=== PATIENT | male | born 1970 | race Caucasian/White ===

== ENCOUNTER 2025-03-12 18:20 | Emergency (ER) | payer OTHER ==
[~2025-03-12] VITALS: Ht 175.3 cm; Wt 70.8 kg
[2025-03-12 18:55] LABS: BASOPHILS ABSOLUTE AUTO 0.04 K/mm3 (0.00-0.23); BASOPHILS PERCENT AUTO 1 % (0-2); EOSINOPHILS ABSOLUTE AUTO 0.08 K/mm3 (0.00-0.68); EOSINOPHILS PERCENT AUTO 2 % (0-6); Hematocrit 30.2 % (37.0-53.0); Hemoglobin 10.5 g/dL (13.5-17.5); IMMATURE GRAN ABSOLUTE AUTO 0.02 K/mm3 (0.00-0.10); IMMATURE GRAN PERCENT AUTO 1 % (0-1); LYMPHOCYTES PERCENT AUTO 24 % (21-46); MONOCYTES ABSOLUTE AUTO 0.55 K/mm3 (0.16-1.47); MONOCYTES PERCENT AUTO 17 % (4-13); Mean Corpuscular HGB Conc 34.8 g/dL (31.5-36.5); Mean Corpuscular Volume 109 fL (80-100); Mean Platelet Volume 11.2 fL (9.1-12.4); NEUTROPHILS ABSOLUTE AUTO 1.83 K/mm3 (1.96-9.15); NEUTROPHILS PERCENT AUTO 55 % (41-73); Platelet Count 51 K/mm3 (150-400); RDW Coefficient Variation 18.6 % (11.7-14.2); RDW Standard Deviation 73.6 fL (35.1-46.3); Red Blood Cell Count 2.76 M/mm3 (4.30-5.90); White Blood Cell Count 3.32 K/mm3 (4.00-11.30)
[2025-03-12 19:16] LABS: Albumin, Blood 2.8 g/dL (3.4-5.0); Bilirubin, Total 1.5 mg/dL (0.1-1.0); Bun/Creatinine Ratio 11.8 (12.0-20.0); Calcium, Blood 8.5 mg/dL (8.5-10.1); Creatinine, Blood 0.51 mg/dL (0.60-1.20); Globulin, Blood 2.9 g/dL (2.2-4.0); Total Protein, Blood 5.7 g/dL (6.4-8.2)
[2025-03-12 20:49] LABS: U Amphetamine Screen Not Detected; U Barbituate Screen Not Detected; U Benzodiazapine Screen Not Detected; U Buprenorphine Screen Not Detected; U Cannabinoids Screen DETECTED; U Cocaine Screen Not Detected; U Methadone Screen Not Detected; U Methamphetamine Screen Not Detected; U Opiates Screen Not Detected; U Oxycodone Screen Not Detected; U Phencyclidine Screen Not Detected
== END 2025-03-12 23:05 | disposition home or self-care (01) ==
LOC: ER 18:20
PROVIDERS: Student in an Organized Health Care Education/Training Program
DX: F10.239 Alcohol dependence with withdrawal, unspecified (principal); R74.01 Elevation of levels of liver transaminase levels; D69.6 Thrombocytopenia, unspecified; F17.200 Nicotine dependence, unspecified, uncomplicated; I10 Essential (primary) hypertension
CPT/HCPCS: 70450; 80053; 80320; 85025; 93005; 93010; 99285-25

== ENCOUNTER 2025-03-15 01:39 | Inpatient (IN) | payer OTHER ==
[~2025-03-15] VITALS: Ht 177.8 cm; Wt 72.4 kg
[2025-03-15] VITALS (28 sets, daily range): BP systolic 115–179; BP diastolic 66–162
[2025-03-15] MEDS ORDERED: LORazepam 2 MG/ML 1ML Injection IM ONE (03:50)
[2025-03-15] MEDS ORDERED: Lactated Ringer's 1,000 ML IV ONE (04:40)
[2025-03-15] MEDS ORDERED: PHENobarbitaL sodium 130 MG/ML VIAL IV ONE (04:45)
[2025-03-15 05:01] LABS: BASOPHILS ABSOLUTE AUTO 0.04 K/mm3 (0.00-0.23); BASOPHILS PERCENT AUTO 1 % (0-2); EOSINOPHILS ABSOLUTE AUTO 0.15 K/mm3 (0.00-0.68); EOSINOPHILS PERCENT AUTO 4 % (0-6); Hematocrit 28.4 % (37.0-53.0); Hemoglobin 9.9 g/dL (13.5-17.5); IMMATURE GRAN ABSOLUTE AUTO 0.01 K/mm3 (0.00-0.10); IMMATURE GRAN PERCENT AUTO 0 % (0-1); LYMPHOCYTES ABSOLUTE AUTO 0.61 K/mm3 (0.84-5.20); LYMPHOCYTES PERCENT AUTO 17 % (21-46); MONOCYTES ABSOLUTE AUTO 0.47 K/mm3 (0.16-1.47); MONOCYTES PERCENT AUTO 13 % (4-13); Mean Corpuscular HGB 38.2 pg (26.0-34.0); Mean Corpuscular HGB Conc 34.9 g/dL (31.5-36.5); Mean Corpuscular Volume 110 fL (80-100); Mean Platelet Volume 11.1 fL (9.1-12.4); NEUTROPHILS ABSOLUTE AUTO 2.41 K/mm3 (1.96-9.15); NEUTROPHILS PERCENT AUTO 65 % (41-73); Platelet Count 54 K/mm3 (150-400); RDW Coefficient Variation 18.1 % (11.7-14.2); RDW Standard Deviation 72.4 fL (35.1-46.3); Red Blood Cell Count 2.59 M/mm3 (4.30-5.90); White Blood Cell Count 3.69 K/mm3 (4.00-11.30)
[2025-03-15 05:25] LABS: Magnesium, Blood 1.3 mg/dL (1.6-2.4)
[2025-03-15 05:26] LABS: Alanine Aminotransfer (ALT/SGP 40 U/L (12-78); Albumin, Blood 2.8 g/dL (3.4-5.0); Albumin/Globulin Ratio 0.9 (0.8-1.8); Alk Phos 125 U/L (50-136); Anion Gap 10 mmol/L (3-11); Aspartate Aminotrans (AST/SGOT 92 U/L (12-37); Bilirubin, Total 1.8 mg/dL (0.1-1.0); Blood Urea Nitrogen 6 mg/dL (8-24); Bun/Creatinine Ratio 11.7 (12.0-20.0); CO2, Blood 24 mmol/L (21-32); Calcium, Blood 8.8 mg/dL (8.5-10.1); Chloride, Blood 105 mmol/L (98-108); Creatinine, Blood 0.51 mg/dL (0.60-1.20); Ethanol (Alcohol), Blood, Med <3 mg/dL; Globulin, Blood 3.1 g/dL (2.2-4.0); Glomerular Filtration Rate 119 (60-); Glucose, Blood 104 mg/dL (70-99); Phosphorus, Blood 3.7 mg/dL (2.5-4.9); Potassium, Blood 3.7 mmol/L (3.5-5.5); Sodium, Blood 135 mmol/L (136-145); Total Protein, Blood 5.9 g/dL (6.4-8.2)
[2025-03-15] MEDS ORDERED: LORazepam 2 MG/ML 1ML Injection IV ONE (05:40)
[2025-03-15] MEDS ORDERED: PHENobarbital Sodium 65MG / ML 1ML Vial IV ONE (06:30)
[2025-03-15] MEDS ORDERED: LORazepam 2 MG/ML 1ML Injection IV PRN ×2 (07:55)
[2025-03-15] MEDS ORDERED: Ondansetron HCl 2 MG / ML 2ML Vial IV PRN (07:55)
[2025-03-15] MEDS ORDERED: NS 1,000 ML IV SCH (08:00)
[2025-03-15] MEDS ORDERED: dexmedeTOMIDine 100 ML IV SCH (08:05)
[2025-03-15] MEDS ORDERED: Magnesium Sulf 2 GM/Water 50ML 50 ML IV ONE (08:15)
[2025-03-15] MEDS ORDERED: Thiamine HCl 100 MG in NS 50 ML IV SCH (09:00)
[2025-03-15] MEDS ORDERED: Enoxaparin 40 MG/0.4 ML SYR SC SCH (09:00)
--- NOTE | 2025-03-15 09:35 | NUR ---
ARRIVAL TO UNIT THIS PT ARRIVED TO ICU AT APPROXIMATELY 0920 WITH THIS NURSE ASSUMING CARE AT THE SAME TIME. PT UNABLE TO ANSWER ANY QUESTIONS WHILE BEING TENSE AND DEFENSIVE WITH PHYSICAL MOVEMENTS. PT SPEECH IS MUMBLED AND HARD TO UNDERSTAND. WILL CONTINUE WITH THE PLAN OF CARE.
--- NOTE | 2025-03-15 17:37 | NUR ---
SHIFT SUMMARY PT REMAINS CONFUSED WITH CIWA'S 20-22, TREATED WITH MEDS ON EMAR. PT ABLE TO TELL YEAR AND LOCATION BUT NOT ANYTHING ELSE. PT PARTNER REAL WOODRAD "YRN" HAS BEEN CALLING AND HAS BEEN UPDATING THE REST OF THE FAMILY, HER NUMBER: [phone]. PRECEDEX WAS TURNED OFF D/T BRADYCARDIA. WILL CONTINUE WITH THE PLAN OF CARE.
--- NOTE | 2025-03-15 18:09 | NUR ---
SHIFT SUMMARY PT RECEIVING 3% SALINE GTT PER ORDER. MD BARRY ORDERED TO DC GTT WHEN SODIUM REACHES A LAB VALUE OF 124. PT COMPLETELY ALERT AND ORIENTED. NO NEW ACUTE EVENTS THROUGHOUT THE SHIFT. WILL CONTINUE WITH THE PLAN OF CARE.
[2025-03-16] VITALS (27 sets, daily range): BP systolic 108–151; BP diastolic 62–97
[2025-03-16 03:46] LABS: Hematocrit 28.7 % (37.0-53.0); Hemoglobin 9.6 g/dL (13.5-17.5); Mean Corpuscular HGB 38.1 pg (26.0-34.0); Mean Corpuscular HGB Conc 33.4 g/dL (31.5-36.5); Mean Corpuscular Volume 114 fL (80-100); Mean Platelet Volume 10.8 fL (9.1-12.4); Platelet Count 54 K/mm3 (150-400); RDW Coefficient Variation 17.8 % (11.7-14.2); RDW Standard Deviation 75.7 fL (35.1-46.3); Red Blood Cell Count 2.52 M/mm3 (4.30-5.90); White Blood Cell Count 4.97 K/mm3 (4.00-11.30)
[2025-03-16 03:58] LABS: International Normalized Ratio 1.31; Prothrombin Time Results 13.7 Sec (9.7-11.5)
[2025-03-16 04:28] LABS: Ferritin, Serum 287 ng/mL (26-388); Iron Serum 24 ug/dL (65-175); Magnesium, Blood 1.5 mg/dL (1.6-2.4); Percent Saturation 9.9 % (20.0-50.0); Total Iron Binding Capacity 242 ug/dL (250-450)
[2025-03-16 04:29] LABS: Albumin, Blood 2.5 g/dL (3.4-5.0); Anion Gap 10 mmol/L (3-11); Blood Urea Nitrogen 5 mg/dL (8-24); Bun/Creatinine Ratio 9.5 (12.0-20.0); CO2, Blood 24 mmol/L (21-32); Calcium, Blood 7.5 mg/dL (8.5-10.1); Chloride, Blood 106 mmol/L (98-108); Creatinine, Blood 0.53 mg/dL (0.60-1.20); Glomerular Filtration Rate 118 (60-); Glucose, Blood 76 mg/dL (70-99); Phosphorus, Blood 2.5 mg/dL (2.5-4.9); Sodium, Blood 136 mmol/L (136-145)
--- NOTE | 2025-03-16 05:35 | NUR ---
SHIFT SUMMARY PT A/O TO SELF, CONFUSED, HALLUCINATING, MUMBLES TO SELF, AGITATED. PT PLACED IN SWB AND MITTS FOR PULLING AT LINES, CORDS AND ATTEMPTING TO GET OOB. MULTIPLE DOSES OF ATIVAN GIVEN FOR AGITATION AND CIWA SCORES > 19. ON 2L NC WITH SATS > 92%, LS CLEAR AND DIM. ON BED AND BREAKFAST COOK, HR 60-90'S, BP STABLE. DENIES N/V. NO BM THIS SHIFT. PUREWICK AND ATTENDS IN PLACE, GOOD UOP NOTED.
[2025-03-16] MEDS ORDERED: Magnesium Sulf 2 GM/Water 50ML 50 ML IV ONE (08:30)
[2025-03-16] MEDS ORDERED: Thiamine HCl 500 MG in NS 100 ML IV SCH (11:14)
--- NOTE | 2025-03-16 13:51 | NUR ---
CARE ASSUMPTION PT AWAKENS TO VERBAL, ORIENTED TO SELF ONLY. VISUAL HALLUCINATIONS. PULLING AT LINES/CORDS WHEN AWAKE. SP02>90% oN 2L NC. NSR, HR 60'S-70'S. BP STABLE. CIWA 17. BED BATH GIVEN, REPOSITION Q2H. C/D ATTENDS IN PLACE. ABLE TO USE URINAL WHEN PROMPTED, DARK YELLOW URINE. NS INFUSING AT 100 MLS/HR PER EMAR. MAG LOW, SEE RESULTS. MD BURGESS W/ ORDERS FOR 2G MAG REPLACEMENT IVPB, INFUSED PER EMAR. PT'S PARTNER, REAL, CALLED MULTIPLE TIMES THIS MORNING FOR UPDATES. SPOKE WITH RAEL AND UPDATED HER X3. CALL LIGHT IN REACH.
--- NOTE | 2025-03-16 17:57 | NUR ---
SHIFT SUMMARY: A/O x1 TO SELF, POLITE AND COOPERATIVE WITH CARE, VARYING RESPONSE TO BEING REDIRECTABLE, CIWA SCORE DECREASED FROM 19 AT BEGINING OF SHIFT TO 13 AT THE 1600 ASSESSMENT, DECREASE IN AGITATION THROUGHOUT SHIFT AND REDUCED NEED FOR ATIVAN, TACTILE DISTURBANCES, TREMORS, AND CONFUSION PERSIST, REMAINED IN SWB AND MITTS. HR 60'S-70'S, NSR, 20G IV IN LFA WITH NS INFUSING AT 100MLS/HR, RFA IV DC'D DUE TO PT PULLING. SAT >92% ON 2L VIA NC, LUNGS CTA. REMAINS NPO, NO BM, DENIES N/V, ATTENEDS AND TENT IN PLACE, USED URINAL WITH 1 PERSON ASSIST, URINE IS VIVIEN AND APPEARED CONCENTRATED, MILD ODOR, REPOSITIONED Q2 USING PILLOWS TO PT COMFORT, BED BATH GIVEN, CBG Q 6. PT SPOKE TO HIS GF CAT ON THE PHONE AND REPORTS FEELING LESS ANXIOUS AFTER TALKING TO HIS HONEY. PT REMAINS CONFUSED, MUMBLES TO SELF, AND PULLS AT LINES AND CORDS.
[2025-03-17] VITALS (16 sets, daily range): BP systolic 83–151; BP diastolic 62–105
[2025-03-17 05:18] LABS: BASOPHILS ABSOLUTE AUTO 0.05 K/mm3 (0.00-0.23); BASOPHILS PERCENT AUTO 1 % (0-2); EOSINOPHILS ABSOLUTE AUTO 0.14 K/mm3 (0.00-0.68); EOSINOPHILS PERCENT AUTO 3 % (0-6); Hematocrit 30.8 % (37.0-53.0); Hemoglobin 10.4 g/dL (13.5-17.5); IMMATURE GRAN ABSOLUTE AUTO 0.04 K/mm3 (0.00-0.10); IMMATURE GRAN PERCENT AUTO 1 % (0-1); LYMPHOCYTES ABSOLUTE AUTO 0.83 K/mm3 (0.84-5.20); LYMPHOCYTES PERCENT AUTO 15 % (21-46); MONOCYTES ABSOLUTE AUTO 0.58 K/mm3 (0.16-1.47); MONOCYTES PERCENT AUTO 11 % (4-13); Mean Corpuscular HGB 38.4 pg (26.0-34.0); Mean Corpuscular HGB Conc 33.8 g/dL (31.5-36.5); Mean Corpuscular Volume 114 fL (80-100); Mean Platelet Volume 11.5 fL (9.1-12.4); NEUTROPHILS ABSOLUTE AUTO 3.89 K/mm3 (1.96-9.15); NEUTROPHILS PERCENT AUTO 70 % (41-73); Platelet Count 64 K/mm3 (150-400); RDW Standard Deviation 70.5 fL (35.1-46.3); Red Blood Cell Count 2.71 M/mm3 (4.30-5.90); White Blood Cell Count 5.53 K/mm3 (4.00-11.30)
[2025-03-17 05:36] LABS: Albumin, Blood 2.7 g/dL (3.4-5.0); Albumin/Globulin Ratio 0.8 (0.8-1.8); Bilirubin, Total 1.7 mg/dL (0.1-1.0); Bun/Creatinine Ratio 11.6 (12.0-20.0); Calcium, Blood 7.6 mg/dL (8.5-10.1); Creatinine, Blood 0.52 mg/dL (0.60-1.20); Globulin, Blood 3.2 g/dL (2.2-4.0); Magnesium, Blood 1.8 mg/dL (1.6-2.4); Total Protein, Blood 5.9 g/dL (6.4-8.2)
--- NOTE | 2025-03-17 05:46 | NUR ---
SHIFT SUMMARY PT HAD UNEVENTFUL NIGHT. A/OX3, ABLE TO MAKE NEEDS KNOWN, HOLDING CONVERSATION WITH STAFF. CIWAS RANGED FROM 9-12 THIS SHIFT, ATIVAN X2 DOSES GIVEN. PT WAS PLEASANT T/O SHIFT. ON 2L NC, SATS > 96%. NSR ON SUPERVISOR MACHINING, HR 70-80'S, BP STABLE. PUREWICK IN PLACE WITH GOOD UOP NOTED. NO BM THIS SHIFT. SWB AND MITTS IN PLACE FOR GRABBING LINES. NEW IV PLACED TO THE RFA.
--- NOTE | 2025-03-17 07:21 | NUR ---
CARE ASSUMPTION RECEIVED REPORT FROM DIESEL TRUCK TECHNICIAN NURSE, PT APPEARED TO BE RESTING IN BED AND IN NO IMMEDIATE DISTRESS. PT IS HERE FOR ETOH WITHDRAW WITH THE LAST CIWA SCORE BEING 9. PT STILL IN SOFT RESTRAINTS WITH HISTORY OF PULLING AT LINES AND IVS. PT'S MORNING PLT AT 64 WITH LOVENOX SCHEDULED AT 0900 WITH A HOLD AT <50.
[2025-03-17] MEDS ORDERED: ChlordiazePOXIDE 25 MG Cap PO PRN (12:15)
[2025-03-17] MEDS ORDERED: Nystatin 100,000 Unit/ML Susp 5 ML UDC SS SCH (17:00)
--- NOTE | 2025-03-17 18:07 | NUR ---
SHIFT SUMMARY NEURO: AT BEGINNING OF SHIFT PT WAS ALERT AND ORIENTED TO YEAR BUT NOT MONTH, PLACE, AND SELF. PT WOULD TALK WITH EYES CLOSED AND SPEECH WAS SLIGHTLY MUMBLED. THROUGHOUT SHIFT PT BECAME MORE ALERT AND ORIENTED TO CURRENT SITUATION AND WOULD ASK ABOUT LENGTH OF STAY. PT AT TIMES WOULD BECOME RESTLESS AND AGITATED, TAKING OUT PURWICK SEVERAL TIMES, AND TALK ABOUT THINGS UNRELATED TO HOSTPIAL STAY. PT IS COOPERATIVE WITH CARE AND ABLE TO BE REDIRECTED. PT THROUGHTOUT SHIFT HAS BEEN ABLE TO FOLLOW BASIC MOTOR COMMANDS AND MOVE EXTREMITIES DESIRED CARDIOVASCULAR: PT REMAINED ON TELE THROUGHOUT SHIFT IN 70'S-90'S SINUS RHYTHM, PT HAS HAD NO COMPLAINTS OF CHEST PAIN OR PRESSURE, AND WAS REMOVED OFF TELE AT END OF SHIFT. RESPIRATORY: PT HAS BEEN ON ROOM AIR THROUGHOUT SHIFT WITH SATS >93% . PT HAS NOT COMPLAINED OF SHORTNESS OF BREATH AND RESPIRATIONS EVEN AND UNLABORED. LUNG SOUNDS HAVE BEEN CLEAR THROUGHOUT. GI: PT'S BOWEL SOUNDS HAVE BEEN ACTIVE THROUGHOUT SHIFT, BUT NO BOWEL MOVEMENT TODAY. PT TAKEN OFF NPO STATUS, INTRODUCING THIN LIQUIDS TOLERATED, AND TOLERATING IT WELL. PT HAS NOT COMPLAINED OF ABDOMEN TENDERNESS OR PAIN. : PT HAS MALE PURWICK IN PLACE BUT HAS YANKED OFF SEVERAL THROUGHOUT SHIFT. PT OFTEN NEEDS ENCOURAGEMENT TO URINATE. PT EXPRESSED RELIEF AFTER ENCOURAGEMENT TO URINATE, EMPTYING OUT ABOUT 500ML AT THAT TIME. SKIN: PT SKIN HAS BEEN DRY AND COOL THROUGHOUT SHIFT. PT HAS HAS BRUISE ON LEFT ARM FROM INFALTRATED IV THAT WAS REPORTED TO US FROM AUTOMATION APPLICATION ENGINEER. PAIN: PT REPORTED A HEADACHE AT THE BEGINNING OF SHIFT BUT HAS SINCE NOT COMPLAINED OF PAIN. PT HAS MEDICATION PER EMAR FOR PAIN RELIEF NEEDED.
--- NOTE | 2025-03-17 21:55 | NUR ---
ASSUMPTION OF CARE AT 1905 MYSELF AND RN BECKA ASSUMED CARE OF PT.PT HAS BEEN TRYING TO GET OUT OF BED OWN HIS OWN AND IS UNSTEADY ON HIS FEET AND WEAK. PT HAS BEEN USING A FWW TO AMBULATE W/ASSISTANCE. PT HAS EXPERIENCED CONFUSION THIS SHIFT AND IS ALERT TO SELF BUT UNABLE TO TELL US WHERE HE IS AT. AT THE BEGINNIG OF SHIFT PT WAS ABLE TO TELL THE YEAR BUT NOW GUESSED 1994 AND THEN SAID 2024.PT HAS A CIWA SCORE OF 10 OF 2149 PT IS ANXIOUS, EXPERIENCING WITHDRAWLS AND HAS HAND TREMORS. PT IS ACTIVELY TRYING TO LEAVE AMA. MYSELF AND THE RN HELPED THE PT CALL HIS S/O "YRN" W/HOSPITAL PHONE AND HE EXPRESSED WANTING HER TO COME PICK HIM UP. PT'S S/O LIVES IN [place] AND WANTS PT TO STAY AT LEAST UNTIL MORNING. WE EXPLAINED THAT WE CANNOT FORCE THE PT TO STAY HERE AGAINST HIS WILL BUT PT IS ACCEPTING AT THIS TIME TO STAY UNTIL AT LEAST MORNING. PT IS ANSWERING QUESTIONS AND HS BEEN MEDICATED PER EMAR, PUREWICK IN PLACE, PATENT LAC IV IN PLACE AND BED ALARM SET FOR SAFETY W/SEIZURE PADS IN PLACE. PT WILL HAVE A SITTER COMING IN WELL.
[2025-03-17] MEDS ORDERED: Nicotine 21 MG PATCH TOP SCH (22:30)
[2025-03-18 03:09] VITALS: BP 151/85
[2025-03-18 03:47] LABS: Hematocrit 29.6 % (37.0-53.0); Hemoglobin 9.9 g/dL (13.5-17.5); Mean Corpuscular HGB 37.1 pg (26.0-34.0); Mean Corpuscular HGB Conc 33.4 g/dL (31.5-36.5); Mean Corpuscular Volume 111 fL (80-100); Mean Platelet Volume 11.6 fL (9.1-12.4); Platelet Count 69 K/mm3 (150-400); RDW Coefficient Variation 16.4 % (11.7-14.2); RDW Standard Deviation 67.1 fL (35.1-46.3); Red Blood Cell Count 2.67 M/mm3 (4.30-5.90); White Blood Cell Count 4.17 K/mm3 (4.00-11.30)
[2025-03-18 04:16] LABS: Albumin, Blood 2.5 g/dL (3.4-5.0); Anion Gap 9 mmol/L (3-11); Blood Urea Nitrogen 3 mg/dL (8-24); Bun/Creatinine Ratio 5.7 (12.0-20.0); CO2, Blood 23 mmol/L (21-32); Calcium, Blood 7.9 mg/dL (8.5-10.1); Chloride, Blood 107 mmol/L (98-108); Creatinine, Blood 0.53 mg/dL (0.60-1.20); Glomerular Filtration Rate 118 (60-); Glucose, Blood 101 mg/dL (70-99); Magnesium, Blood 1.7 mg/dL (1.6-2.4); Phosphorus, Blood 1.9 mg/dL (2.5-4.9); Potassium, Blood 3.3 mmol/L (3.5-5.5); Sodium, Blood 136 mmol/L (136-145)
[2025-03-18] MEDS ORDERED: Acetaminophen 325 MG TABLET PO PRN (04:20)
[2025-03-18] MEDS ORDERED: Potassium Phosphate Dibasic 20 MM in Dextrose 5% 500 ML IV ONE (05:00)
--- NOTE | 2025-03-18 05:04 | NUR ---
SHIFT SUMM: PT IS A&OX 3-4 WITH SOME CONFUSION AND CIWA OF 7-10 THIS SHIFT. ATIVAN AND LIBRIUM GIVEN BY BECKA MAYA NEEDED (SEE EMAR). PT STILL HAS A 1:1 SITTER TO HELP PREVENT PT FROM GETTING OUT OF BED AND HELP W/REDIRECTION. PT HAS A PATENT IV TO LFA. PT HAS A MALE PURE WICK IN PLACE DRAINING TO GRAVITY. PT HAS BEEN ABLE TO SWALLOW MEDS WWW AND TOLERATE THAT WELL. PT RECIEVED A NICOTINE PATCH TO THE L UPPER BACK OF SHOULDER. PT MAINTAINS SATS ON RA AND IS TOLERATING A CLEAR LIQUID DIET WELL. PT HAS CALL LIGHT IN REACH AND BED ALARM SET FOR SAFETY W/BED LOW AND LOCKED AND SEIZURE PADS IN PLACE. PT STILL PLANS TO LEAVE THIS MORNING WHEN HE HAS A RIDE AVAILABLE TO PICK HIM UP.
[2025-03-18 08:21] VITALS: BP 151/958
--- NOTE | 2025-03-18 08:30 | NUR ---
CARE ASSUMPTION WHEN GETTING REPORT FROM COMPARATIVE SOCIOLOGY PROFESSOR NURSE'S, PT WAS ASLEEP IN BED WITH A SITTER PRESENT IN THE ROOM. THE COMPARATIVE SOCIOLOGY PROFESSOR NURSE REPORTED THAT THE PT WAS EAGER TO LEAVE LAST NIGHT, WITH AN ATTEMPT TO LEAVE AT AROUND 2200. SHORTLY AFTER REPORT PT WAS AMBULATED TO THE RECLINER FOR BREAKFAST WITH THE ASSIST OF TWO STAFF MEMBERS.
[2025-03-18] MEDS ORDERED: Vitamin B Cmplx/Vit C/Folic Ac 1 Tab PO SCH (11:25)
[2025-03-18] MEDS ORDERED: Ferrous Sulfate 325 MG Tab PO SCH (11:25)
[2025-03-18] MEDS ORDERED: Ascorbic Acid 250 MG Chew PO SCH (11:25)
[2025-03-18 15:05] VITALS: BP 150/88
--- NOTE | 2025-03-18 15:15 | NUR ---
PT BELONGINGS LYLE FROM [employer] BROUGHT IN PT'S BELONGINGS INMCLUDING ONE DOLLAR JIMENES, ONE SELCO BANK CARD, BIMART MEMBERSHIP CARD, PT'S CELL PHONE AND MULTPLE MEDICATIONS. PT NOT WANTING JIMENES OR CARDS LOCKED AWAY BY SURGERY SO THIS RN PLACED THEM IN A BAG AND PUT IN REAR POCKET OF HIS PERSONAL PANTYS AND PLACED IN BELONGING BAG ABOVE CLOSET. PT HAS HIS CELL PHONE IN THE CHAIR W HIM. PT'S MEDICATIONS TAKEN TO PHARMACY AND RETURN SLIP PLACVED IN PT'S CHART.
[2025-03-18] MEDS ORDERED: OLANZapine 10 MG Vial IM PRN (17:05)
[2025-03-18 17:24] VITALS: BP 155/84
--- NOTE | 2025-03-18 18:32 | NUR ---
DAY SHIFT SUMMARY PT BEGAN SHIFT AND MOST OF THE DAY W CIWA SCORE 6-11 W MINOR TREMOR AND RESTLESSNESS, HOWEVER THIS AFTERNOON THE PT BECAME VERY AGITATED AFTER WORKING W PT ATTEMPTING TO EXIT HIS BED W/O ASSISTANCE. PER PT THE PT IS A TWO PERSON STAND AND PIVOT DUE TO SIGNIFICANT WEAKNESS AND LACK OR BALANCE. PT MEDICATED PER CIWA BUT BECAME MORE AGITATED. PROVIDER NOTIFIED AND ZYPREXA ORDERED. PT CALMING SLIGHTLY AFTER ZYPREXA ADMINISTRATION. PT'S VSS ALL SHIFT ON RM AIR. PT WAS TO BE MOVED TO MEDICAL FLOOR BUT WAS KEPT IN ICU AFTER HE BECAME MORE AGITATED. WILL REPORT TO ONCOMING RN.
[2025-03-18 20:23] VITALS: BP 151/96
[2025-03-18] MEDS ORDERED: Docusate Sodium 100 MG Cap PO SCH (21:00)
--- NOTE | 2025-03-18 22:15 | NUR ---
PT UPDATE: PT BECAME VERY CONFUSED, NOT RE-DIRECTABLE, ATTEMPTING TO GET OUT OF BED, PULLING ON LINES. PT ADMINISTERED ATIVAN PER EMAR ORDERS, SEE EMAR. SOFT RESTRAINTS INITIATED.
[2025-03-19] VITALS (40 sets, daily range): BP systolic 97–177; BP diastolic 60–110
[2025-03-19] MEDS ORDERED: OLANZapine 10 MG Vial IM PRN (03:50)
--- NOTE | 2025-03-19 03:50 | NUR ---
PT UPDATE: PT CONTINUES TO ATTEMPT TO GET OUT OF BED, PULLING AT LINES, YELLING OUT. PT TALKS TO "YRN" WHO HE BELIEVES IS IN ROOM. CALL MADE TO DR DUBOIS, UPDATED ORDERS OBTAINED FOR ZYPREXA, SEE EMAR.
[2025-03-19 05:26] LABS: BASOPHILS ABSOLUTE AUTO 0.04 K/mm3 (0.00-0.23); BASOPHILS PERCENT AUTO 1 % (0-2); EOSINOPHILS ABSOLUTE AUTO 0.07 K/mm3 (0.00-0.68); EOSINOPHILS PERCENT AUTO 2 % (0-6); Hematocrit 30.9 % (37.0-53.0); Hemoglobin 10.8 g/dL (13.5-17.5); IMMATURE GRAN ABSOLUTE AUTO 0.04 K/mm3 (0.00-0.10); IMMATURE GRAN PERCENT AUTO 1 % (0-1); LYMPHOCYTES ABSOLUTE AUTO 0.52 K/mm3 (0.84-5.20); LYMPHOCYTES PERCENT AUTO 15 % (21-46); MONOCYTES ABSOLUTE AUTO 0.69 K/mm3 (0.16-1.47); MONOCYTES PERCENT AUTO 19 % (4-13); Mean Corpuscular HGB 37.8 pg (26.0-34.0); Mean Corpuscular Volume 108 fL (80-100); NEUTROPHILS ABSOLUTE AUTO 2.19 K/mm3 (1.96-9.15); NEUTROPHILS PERCENT AUTO 62 % (41-73); Platelet Count 76 K/mm3 (150-400); RDW Coefficient Variation 16.2 % (11.7-14.2); RDW Standard Deviation 65.4 fL (35.1-46.3); Red Blood Cell Count 2.86 M/mm3 (4.30-5.90); White Blood Cell Count 3.55 K/mm3 (4.00-11.30)
--- NOTE | 2025-03-19 05:31 | NUR ---
SHIFT SUMMARY: PT IS ALERT AND ORIENTED X3 DURING THE DAY, BUT BECOMES CONFUSED/DISORIENTED DURING EVENING AND NIGHT HOURS. PT WAS DIRECTABLE AND FRIENDLY/COOPERATIVE W/CARE AT START OF SHIFT, T/O REMAINDER OF SHIFT PT BECAME FIDGETY, CONFUSED, NOT DIRECTABLE, OR COOPERATIVE. PT ATTEMPTING TO GET OUT OF BED,DISCONNECTING LINES. PT WAS MEDICATED PER EMAR PRN ORDERS. PT REMAINS SINUS, TACHY. HR IN LOW 100S. SBP 140S-160S. PT LUNGS CLEAR T/O, SATS >95% ON RA. ABD SOFT ON PALPATION, MILDLY DISTENDED. PT TAKING SIPS OF WATER W/ PILLS WHEN COOPERATIVE. MALE PUREWICK CATHETER IN PLACE, DRAINING TO CONT SUCTION. 20G PERIPHERAL IV IN LWRIST.
[2025-03-19 05:45] LABS: Albumin, Blood 2.8 g/dL (3.4-5.0); Albumin/Globulin Ratio 0.8 (0.8-1.8); Bilirubin, Total 1.7 mg/dL (0.1-1.0); Bun/Creatinine Ratio 4.2 (12.0-20.0); Calcium, Blood 8.6 mg/dL (8.5-10.1); Creatinine, Blood 0.48 mg/dL (0.60-1.20); Globulin, Blood 3.7 g/dL (2.2-4.0); Magnesium, Blood 1.6 mg/dL (1.6-2.4); Phosphorus, Blood 1.3 mg/dL (2.5-4.9); Potassium, Blood 3.1 mmol/L (3.5-5.5); Total Protein, Blood 6.5 g/dL (6.4-8.2)
[2025-03-19] MEDS ORDERED: Potassium Phosphate Dibasic 30 MM in Dextrose 5% 500 ML IV ONE (06:45)
--- NOTE | 2025-03-19 10:00 | NUR ---
PATIENT PIV NOT USEABLE. ATTEMPTED TO PLACE PIV AND PT BECAME AGITATED JERKING HIS ARM AFTER NEEDLE INSERTED. INTERVENTIONS USED PRIOR TO ATTEMPT, REORIENTING, SOFT/CALM VOICES, SOFT MUSIC AND RESPOSITIONING. RESTRAINTS IN PLACE FOR PT SAFETY. DROWSY, NOT ORIENTED, UNABLE TO FOLLOW DIRECTIONS, AGITATED. PRN ZYPREXA ADMINISTERED.
[2025-03-19] MEDS ORDERED: Thiamine HCl 100 MG Tab PO ONE (12:05)
--- NOTE | 2025-03-19 15:20 | NUR ---
SHIFT SUMMARY NEURO: PATIENT DROWSY TODAY. ORIENTED X 0. MUMBLED SPEECH. PUPILS PIN POINT. RESPONDS TO VERBAL STIMULI AND SOFT TOUCH. CONFUSED SPEECH IS WORD SALAD AND OCCASIONALLY 1-5 WORD SENTENCES. PT UNABLE TO SWALLOW SAFELY DUE TO SOMNOLENCE. ATTEMPTED BEDSIDE NURSE SWALLOW AND PT COUGHED. WILL WAIT UNTIL MORE AWAKE. CIWAS: <8 TODAY. NO ATIVAN ADMINISTERED ON MY SHIFT. ZYPREXA ADMINISTERED THIS MORNING PT BECAME AGITATED WHEN REMOVING PIV AND ATTEMPTING TO INSERT A NEW ONE. ROM COMPLETED THIS AM BUT PT ATTEMPTED TO SWING HIS ARM TOWARDS ME AN BEGAN BANGING HIS HANDS ON THE BED. CARDIAC: SR, SBP: 90S-120S. HR 70S. PULMONARY: LUNGS CLEAR TO AUSCULTATION GI: ABDOMEN IS SOFT WITH NORMOACTIVE BOWEL TONES : MALE PUREWICK IN PLACE. URINE YELLOW TO LOW SUCTION. SKIN: INTACT WITH SCATTERED BRUISES ON LOWER ABODMEN, BUE (INCLUDING HANDS) AND BLE. CALLED AND SPOKE WITH REAL HIS PARTNER TODAY AND PROVIDED UPDATES. SHE HAD CONCERNS THAT HE IS TOO SEDATED, PROVIDED EDUCATION ON MAR AND CIWA PROTCOL FOR ETOH WITHDRAWL, APPROX 25MIN PHONE CALL. PT SLEPT MOST OF THE DAY. 1:1 SITTER AT BEDSIDE THIS AFTERNOON 1413 AND RESTRAINTS D/C'D.
--- NOTE | 2025-03-19 20:42 | NUR ---
ASSUMED CARE AT 1900 PATIENT IS LETHARGIC AT TIMES, BECAME MORE ALERT AND TALKATIVE, STILL MUMBLES, ORIENTED X SELF AND FOLLOWING DIRECTIONS. STATES IT WAS MARCH 20 AND THAT HE WAS IN HOPE, ABLE TO REDIRECT. SITTER AT BEDSIDE. CIWA 4. SP02 99% ON RA, DENIES SOB. HR SR 80s, BP STABLE. DENIES CP/PRESSURE. MALE PUREWICK IN PLACE TO SUCTION, DRAINING DARK YELLOW URINE. PATIENT ABLE TO REPOSITION SELF. CALL LIGHT IN REACH.
[2025-03-20] VITALS (22 sets, daily range): BP systolic 89–137; BP diastolic 58–120
[2025-03-20 03:39] LABS: BASOPHILS ABSOLUTE AUTO 0.05 K/mm3 (0.00-0.23); BASOPHILS PERCENT AUTO 1 % (0-2); EOSINOPHILS ABSOLUTE AUTO 0.12 K/mm3 (0.00-0.68); EOSINOPHILS PERCENT AUTO 3 % (0-6); Hematocrit 30.7 % (37.0-53.0); Hemoglobin 10.3 g/dL (13.5-17.5); IMMATURE GRAN ABSOLUTE AUTO 0.02 K/mm3 (0.00-0.10); IMMATURE GRAN PERCENT AUTO 1 % (0-1); LYMPHOCYTES ABSOLUTE AUTO 0.83 K/mm3 (0.84-5.20); LYMPHOCYTES PERCENT AUTO 22 % (21-46); MONOCYTES ABSOLUTE AUTO 0.76 K/mm3 (0.16-1.47); MONOCYTES PERCENT AUTO 20 % (4-13); Mean Corpuscular HGB 38.3 pg (26.0-34.0); Mean Corpuscular HGB Conc 33.6 g/dL (31.5-36.5); NEUTROPHILS ABSOLUTE AUTO 2.06 K/mm3 (1.96-9.15); NEUTROPHILS PERCENT AUTO 54 % (41-73); Platelet Count 97 K/mm3 (150-400); RDW Coefficient Variation 19.9 % (11.7-14.2); RDW Standard Deviation 75.8 fL (35.1-46.3); Red Blood Cell Count 2.69 M/mm3 (4.30-5.90); White Blood Cell Count 3.84 K/mm3 (4.00-11.30)
[2025-03-20 03:40] LABS: Mean Corpuscular Volume 114 fL (80-100)
[2025-03-20 04:34] LABS: Magnesium, Blood 1.5 mg/dL (1.6-2.4)
[2025-03-20 04:43] LABS: Albumin, Blood 2.5 g/dL (3.4-5.0); Albumin/Globulin Ratio 0.8 (0.8-1.8); Bilirubin, Total 1.2 mg/dL (0.1-1.0); Bun/Creatinine Ratio 7.7 (12.0-20.0); Calcium, Blood 8.2 mg/dL (8.5-10.1); Creatinine, Blood 0.52 mg/dL (0.60-1.20); Globulin, Blood 3.3 g/dL (2.2-4.0); Phosphorus, Blood 3.3 mg/dL (2.5-4.9); Potassium, Blood 3.2 mmol/L (3.5-5.5); Total Protein, Blood 5.8 g/dL (6.4-8.2)
[2025-03-20] MEDS ORDERED: Magnesium Sulf 2 GM/Water 50ML 50 ML IV ONE (04:50)
[2025-03-20] MEDS ORDERED: Potassium Chloride 40 MEQ in NS 250 ML IV ONE (04:50)
--- NOTE | 2025-03-20 06:09 | NUR ---
SHIFT SUMMARY PATIENT BECAME AGITATED AND CONFUSED AT APPROX 2230, HALLUCINATING AND UNABLE TO REDIRECT, ATTEMPTING TO GET OUT OF BED. MEDICATED PER EMAR. ALEX VEST ON. PATIENT REMAINED ON ROOM AIR THROUGH THE NIGHT, SP02 97%. HR SR-ST 80s-120s. BP STABLE. PUREWICK IN PLACE. SITTER REMAINS AT BEDSIDE.
--- NOTE | 2025-03-20 14:30 | NUR ---
BLADDER SCAN COMPLETED DUE TO ONLY 10ML UOP THIS SHIFT. 406ML IN BLADDER. PT UP TO COMMODE PRIOR WITH NO UOP. PT ABLE TO VOID STANDING AT BEDSIDE WITH URINAL. DIET UPDATED TO SOFT AND BITE SIZED. PT DOES NOT HAVE HIS UPPER DENTURES AND HAD DIFFICULTY EATING PIZZA FOR LUNCH. ENCOURAGING PO FLUID INTAKE AT URINE DARK YELLOW.
--- NOTE | 2025-03-20 17:49 | NUR ---
SHFIT SUMMARY PATIENT ALERT AND ORIENTED X 3-4 AT TIMES, HOWEVER, THIS WAXES AND WANES. OTHER TIMES HE IS DISORIENTED AND CONFUSED. HE DID RECALL STAFFS NAME TODAY. PT SPEECH IS CLEAR BUT HAS OBSERVABLE MUMBLED SPEECH IN WHICH HE VERBALIZES THAT HE IS SEEING ANIMALS THAT ARE NOT THERE. HE ALSO HAS PERIODS WHERE HIS SPEECH PATTERN IS MORE OF A FLIGHT OF IDEAS. HE REMAINS IN A CALM MOOD AND HAS BEEN DIRECTABLE TODAY. HIS LAST CIWA WAS 5. HE HAS NOT RECIEVED ANY PRN MEDICATIONS FOR ETOH WITHDRAWL OR AGITATION TODAY. CADIAC: SR HR 80S SBP 100-120S. LUNGS:CLEAR TO AUSCULATION : DARK YELLOW URINE, ENCOUARGED PO FLUID INTAKE. PUREWICK REMOVED. PT USING COMMODE OR URINAL. GI: SMALL FIRM BM TODAY, STOOL SOFTENER ADMINISTERED TODAY. SKIN: INTACT, ECCYMOSIS TO BUE MOBILITY: PATIENT UP X 3 TO WALK OUTSIDE OF ROOM TODAY. UP TO COMMODE MULTIPLE TIMES. MUSCLE STRENGTH IMPROVING. UPDATES PROVIDED TO PARTNER REAL AND SON KANDICE.
--- NOTE | 2025-03-20 21:28 | NUR ---
ASSUMPTION OF CARE PT LYING IN BED SLEEPING FOLLOWING DOSE OF ZYPREXA GIVEN BEFORE PT RECEIVED AT 1900. REPORT RECEIVED FROM DAY RN. PT LYING IN BED IN NO APPARENT DISTRESS. AFEBRILE. VSS. BREATHING IS WITHOUT EXTTRA EFFORT AND SYMMETRIC EXPANSION. SINUS RHYTHM. STABLE BP. 95% SAT OF RA. PURE WICK OFF FOR NOW. SITTER IN ROOM. WILL REVIEW AND CONTINUE PLAN OF CARE.
--- NOTE | 2025-03-20 23:05 | NUR ---
THIS RN IS CHOOSING TO POSTPONE 2100 MEDS DUE TO PT SEDATION/SLEEPING. WILL ADMINISTER IF/WHEN HE WAKES UP. CONTINUES TO SLEEP SOUNDLY WITH STABLE SINUS RHYTHM IN THE 70'S AND RR OF 16/MIN; BREATHING UNLABORED. SITTER IS STILL IN ROOM.
[2025-03-21] VITALS (8 sets, daily range): BP systolic 120–141; BP diastolic 78–85
[2025-03-21] MEDS ORDERED: Nicotine Polacrilex 2 MG Gum PO PRN (01:55)
[2025-03-21 04:25] LABS: Hematocrit 30.6 % (37.0-53.0); Hemoglobin 10.4 g/dL (13.5-17.5); Mean Corpuscular HGB 37.3 pg (26.0-34.0); Mean Corpuscular Volume 110 fL (80-100); Mean Platelet Volume 12.1 fL (9.1-12.4); Platelet Count 70 K/mm3 (150-400); RDW Coefficient Variation 16.4 % (11.7-14.2); RDW Standard Deviation 67.4 fL (35.1-46.3); Red Blood Cell Count 2.79 M/mm3 (4.30-5.90)
[2025-03-21 04:52] LABS: Albumin, Blood 2.5 g/dL (3.4-5.0); Anion Gap 10 mmol/L (3-11); Blood Urea Nitrogen 7 mg/dL (8-24); Bun/Creatinine Ratio 13.8 (12.0-20.0); CO2, Blood 22 mmol/L (21-32); Calcium, Blood 8.4 mg/dL (8.5-10.1); Chloride, Blood 109 mmol/L (98-108); Creatinine, Blood 0.51 mg/dL (0.60-1.20); Glomerular Filtration Rate 119 (60-); Glucose, Blood 99 mg/dL (70-99); Magnesium, Blood 1.8 mg/dL (1.6-2.4); Phosphorus, Blood 3.3 mg/dL (2.5-4.9); Potassium, Blood 3.8 mmol/L (3.5-5.5); Sodium, Blood 137 mmol/L (136-145)
--- NOTE | 2025-03-21 05:06 | NUR ---
SHIFT SUMMARY PT LYING IN BED, ALERT AND ORIENTED TO ALL. PT MUMBLES BUT OVERALL COHERENTLY. PT OCCASIONALLY ENGAGES IN TANGENTIAL QUESTIONING/CONVERSATIONS, OFTEN ABOUT PRESENT AND PAST ROMANTIC PARTNERS. PT GIVEN NO ATIVAN, ZYPREXA DURING SHIFT. PRE SHIFT ZYPREXA PUT PT TO SLEEP FOR 5 HOURS. HE AWOKE MILDLY CONFUSED BUT WAS REORIENTED AND THEN TAKEN ON A WALK. SLIGHTLY UNSTEADY ON FEET WITH 300 FT OF AMBULATION AND ONE BREAK- NO SOB OR CHEST PAIN OR DIZZINESS. PT HAS BEEN SINUS RHYTHM WITH STABLE BP. SATURATION WAS 98% OR GREATER ON RA EVERYTIME CHECKED. NO BM. NO AB PAIN, N/V. PT HAD SNACK. PT ALSO DRANK 500ML OF FLUIDS. NO URINE OUTPUT OF WRITING THIS AT 0512- WILL MONITOR CLOSELY REST OF SHIFT. SALINE LOCKED WITH SITTER IN ROOM. SITTER MAY NOT BE NEEDED IN THE NEAR FUTURE. PROVIDER WAS CALLED FOR POTASSIUM REPLACEMENT. PT HAS CALL LIGHT HANDY.
[2025-03-21] MEDS ORDERED: Potassium Chloride 40 MEQ in NS 250 ML IV ONE (06:30)
[2025-03-21] MEDS ORDERED: Magnesium Sulf 2 GM/Water 50ML 50 ML IV ONE (06:30)
--- NOTE | 2025-03-21 08:00 | NUR ---
am note this rn assumed care with student nurse rn mckenna. medical status no tele. vital signs stable. patient is alert and oriented x4. patient when first being woken up is confused with whats going on but once fully awake is able to inform this rn. patient denies pain, chest pain/pressure or shortness of breath. patient is able to make needs known and uses call light. patient has clinical sitter in room at this time.
[2025-03-21] MEDS ORDERED: Multivitamins 1 Tab PO SCH (09:00)
[2025-03-21] MEDS ORDERED: Thiamine HCl 100 MG Tab PO SCH (09:00)
[2025-03-21] MEDS ORDERED: Ferrous Sulfate 325 MG Tab PO SCH (09:00)
--- NOTE | 2025-03-21 09:57 | NUR ---
update this rn gave update to kayleigh with patients ppermsission
--- NOTE | 2025-03-21 09:57 | NUR ---
therapy occupational therapy in room working with patient
--- NOTE | 2025-03-21 11:52 | NUR ---
update patient working with physical therapy walking around the unit
--- NOTE | 2025-03-21 16:21 | NUR ---
update this rn updated yoselin, patient partner, that patient will be moving to room 353 and this rn updated patient philip julio that patient moving to room 353
--- NOTE | 2025-03-21 17:50 | NUR ---
transfer note this rn gave report to medical floor nurse. patient left with three belonging bags and in no distress.
--- NOTE | 2025-03-21 18:24 | NUR ---
SHIFT SUMMARY PT A&OX4, UPON WAKING PT WAS CONFUSED BUT EASILY ORIENTED. EYES PERRLA. BLOOD PRESSURE STABLE. SR 80'S TO 90'S. O2 SATURATION MAINTAINED AT 100% ON RA. NO EDEMA IDENTIFIED ON ASSESSMENT. PT HAS SCATTERED BRUISING, REDENED AREA OF THE RIGHT KNEE, BRUISES OF THE RIGHT AND LEFT ABD. PT MAINTAINED A CIWA SCORE OF 2 THROUGHT SHIFT. PT IS A 1P ASSIST WITH A FWW. PT OVER ESTIMATES OWN ABILITY. NO ACUTE EVENTS. PT WAS TRANSFERED TO MEDICAL FLOOR.
--- NOTE | 2025-03-21 18:31 | NUR ---
RECEIVED PATIENT AT 1730 PT AX4 DENIES PAIN LUNGS CLEAR ON RA REG HR SITTING EATING DINNER ABLE TO VOICE NEEDS AND FOLLOW COMMANDS. POWER GLIDE ADDY AND CWIA AT 0. CONT OF B/B WITH RECENT BM.
--- NOTE | 2025-03-21 18:33 | NUR ---
student documentation this rn agree with student mckenna documentation
[2025-03-21] MEDS ORDERED: Sennosides 8.6 MG Tab PO SCH (21:00)
[2025-03-22 03:30] VITALS: BP 115/64
--- NOTE | 2025-03-22 05:24 | NUR ---
Radio Installer [employer] Shift Summary. Patient admitted with alcohol withdrawl. CIWA's completed q4hrs scores from 4-7. Alert and orientation labile, seems to increase and decrease depending on time of night. Up add himanshu wandering halls use of walker encouraged although refused. Denies hallucinations, although verbalizations do not correlate with observations. Sleeping intermittenly. Some noted irritation with staff when encouraged to comply with safety issues. Oriented to use of call light and encouraged to do so. Call light within reach. Bed rails up x2. Bed in lowest position for safety. Will continue to monitor.
--- NOTE | 2025-03-22 05:32 | NUR ---
DRUM TESTER NURSE STUDENT PRECEPTOR NOTE. I HAVE WORKED ALONG SIDE OF AND HAVE READ HER DOCUMENTATION, I AGREE WITH THE ABOVE INFO
[2025-03-22 07:34] LABS: Albumin, Blood 2.5 g/dL (3.4-5.0); Albumin/Globulin Ratio 0.8 (0.8-1.8); Bilirubin, Total 0.9 mg/dL (0.1-1.0); Bun/Creatinine Ratio 8.6 (12.0-20.0); Calcium, Blood 8.4 mg/dL (8.5-10.1); Creatinine, Blood 0.58 mg/dL (0.60-1.20); Globulin, Blood 3.3 g/dL (2.2-4.0); Magnesium, Blood 1.8 mg/dL (1.6-2.4); Phosphorus, Blood 3.6 mg/dL (2.5-4.9); Potassium, Blood 4.1 mmol/L (3.5-5.5); Total Protein, Blood 5.8 g/dL (6.4-8.2)
[2025-03-22 07:43] VITALS: BP 127/82
[2025-03-22] MEDS ORDERED: Vitamin C100 M1 PO (12:57)
[2025-03-22] MEDS ORDERED: Acetaminophen650 M1 PO (12:57)
[2025-03-22] MEDS ORDERED: FERROUS GLUCON324 M4 PO (12:58)
[2025-03-22] MEDS ORDERED: DOCU100 PO (12:58)
[2025-03-22] MEDS ORDERED: THEREMS MULTI400 MCG PO (13:01)
[2025-03-22] MEDS ORDERED: B-1100 M2 PO (13:02)
[2025-03-22] MEDS ORDERED: SENN187 PO (13:02)
--- NOTE | 2025-03-22 14:11 | NUR ---
DISCHARGE NOTE PT DISCHARGED TO HOME, PICKED UP BY A TAXI. POWERGLIDE REMOVED. DISCHARGE EDUCATION AND INFORMATION REVIEWED. MEDICATIONS FAXED TO THE PHARMACY OF HIS CHOICE.
== END 2025-03-22 14:02 | disposition home health service (06) | DRG 897 ==
LOC: ER 01:39 → ERHOLD 07:53 → ICUE 07:53 → MEDS 03-21 17:30
PROVIDERS: Internal Medicine; Student in an Organized Health Care Education/Training Program; ADMIT Internal Medicine
PROC: HZ2ZZZZ Detoxification Services for Substance Abuse Treatment (ICD-10-PCS; principal; 2025-03-15)
DX: F10.131 Alcohol abuse with withdrawal delirium (principal); D61.818 Other pancytopenia; F05 Delirium due to known physiological condition; E83.42 Hypomagnesemia; E83.39 Other disorders of phosphorus metabolism; E87.6 Hypokalemia; F17.210 Nicotine dependence, cigarettes, uncomplicated; F03.90 Unspecified dementia, unspecified severity, without behavioral disturbance, psychotic disturbance, mood disturbance, and anxiety; R74.01 Elevation of levels of liver transaminase levels; Z71.41 Alcohol abuse counseling and surveillance of alcoholic; Z71.6 Tobacco abuse counseling; Y90.0 Blood alcohol level of less than 20 mg/100 ml
CPT/HCPCS: 36415; 80053; 80069; 80320; 82140; 82607; 82728; 82746; 82947; 83540; 83550; 83735; 84100; 85025; 85027; 85610; 93005; 93010; 94760; 94762; 96361; 96372-59; 96374; 97110; 97112; 97116; 97162; 97165; 97530; 97535; 99285-25; A9270; C1751; J1650; J2060; J2560; J3411; J3475; J3480; J7030; J7050; J7060; J7120